=== PATIENT | female | born 1995 | race Caucasian/White ===

== ENCOUNTER → 2025-01-09 | Outpatient (CLI) | payer OTHER ==
--- NOTE | 2025-01-09 15:55 | US ---
EXAMINATION TYPE: Transabdominal DATE OF EXAM: 01/09/2025 2:58 PM COMPARISON: NONE CLINICAL INDICATION: Female, 29 years old with history of Z34.90 SUPERVISION OF ; pt found o ut she was in november, pt unaware of how far along she is TECHNIQUE: TA with grayscale and color Doppler imaging including first trimester . FINDINGS: EXAM MEASUREMENTS: GESTATIONAL AGE / DATING Physician Established: Not yet established Dates by LMP: 10/30/2024 (10 weeks/1 days) EDC: 08/06/2024 Dates by First Scan: No previous this is first scan Dates by Current Scan for: (8 weeks/6 days) EDC: 08/15/2024 MATERNAL ANATOMY Uterus: 12.4x5.3x7.5cm Slightly obscured by bowel Right Ovary: 2.7x2.2x1.4cm Limited visualization due to overlying bowel & pt body habitus Left Ovary: 3.7x1.8x1.7cm Limited visualization due to overlying bowel & pt body habitus Post CDS / Adnexa: wnl as best visualized Presence of free fluid: n/a Presence of corpus luteal cyst: n/a Presence of subchorionic bleed: n/a GESTATION / SURVEY CRL: 21.2mm (8 weeks/6 days) Gestational Sac morphology: Normal Yolk Sac (normal less than 6mm): 0.4cm Cardiac Activity/Heart Rate: 142 bpm Rhythm: Normal IUP: Viable IUP Date of LMP: 10/30/2024 Beta HcG (if available): Not available at this time IMPRESSION: 1. 1. Single intrauterine gestation estimated at 8 weeks 6 days gestation based on crown-rump length. Ca rdiac activity measures 142 bpm. [facility], , 01/09/2025 3:52 PM
== END | disposition home or self-care (01) ==
LOC: RADUSWWP 14:27
DX: Z34.91 Encounter for supervision of normal pregnancy, unspecified, first trimester (principal); Z3A.10 10 weeks gestation of pregnancy
CPT/HCPCS: 76801

== ENCOUNTER 2025-02-27 20:17 | Emergency (ER) | payer OTHER ==
--- NOTE | 2025-02-27 21:00 | ED ---
Nausea/Vomiting/Diarrhea HPI - General Chief complaint: Nausea/Vomiting/Diarrhea Stated complaint: vomiting Time Seen by Provider: 02/27/25 20:35 Source: patient, family, RN notes reviewed Mode of arrival: ambulatory Limitations: no limitations - History of Present Illness Initial comments: 29-year-old G2, P1 approximately 15 weeks gestation female presenting to the ER for evaluation of nausea and vomiting. Patient states since waking up this morning she has had consistent nausea and vomiting. Patient reports she has been unable to keep any food or liquids down given this. She denies any hematemesis or coffee-ground emesis. She has not taken anything for her current symptoms. Patient reports she has followed up with OB outpatient and had ult rasound completed at 8 weeks which was normal per patient. She denies any current abdominal pain, vaginal bleeding or discharge, dysuria, increased urinary frequency, fevers, chills or peripheral edema. - Related Data Previous Rx's Medication Instructions Recorded Ondansetron Odt [Zofran Odt] 4 mg PO Q8HR PRN #10 tab 02/27/25 Allergies Allergy/AdvReac Type Severity Reaction Status Date / Time No Known Allergies Allergy Verified 02/27/25 20:26 Review of Systems ROS Statement: Those systems with pertinent positive or pertinent negative responses have been documented in the HPI. ROS Other: All systems not noted in ROS Statement are negative. Past Medical History Past Medical History: Asthma History of Any Multi-Drug Resistant Organisms: None Reported Past Surgical History: Section Past Psychological History: No Psychological Hx Reported Smoking Status: Never smoker Past Alcohol Use History: None Reported Past Drug Use History: None Reported General Exam Limitations: no limitations General appearance: alert, in no apparent distress Respiratory exam: Present: normal lung sounds bilaterally. Absent: respiratory distress, wheezes, rales, rhonchi, stridor Cardiovascular Exam: Present: regular rate, normal rhythm, normal heart sounds. Absent: systolic murmur, diastolic murmur, rubs, gallop, clicks GI/Abdominal exam: Present: soft (Obese abdomen. No focal tenderness.), normal bowel sounds Extremities exam: Present: normal inspection, full ROM, normal capillary refill. Absent: tenderness, pedal edema, joint swelling, calf tenderness Neurological exam: Present: alert, oriented X3, CN II-XII intact Skin exam: Present: warm, dry, intact, normal color. Absent: rash Course Vital Signs 02/27/25 02/27/25 20:24 23:03 Temperature 98.6 F 98.3 F Pulse Rate 85 86 Respiratory 18 16 Rate Blood Pressure 107/77 112/81 O2 Sat by Pulse 99 100 Oximetry Medical Decision Making - Medical Decision Making Was pt. sent in by a medical professional or institution (LEENA Betts, VIDEO INTER[employer], urgent care, hospital, or halfway...) When possible be specific @ -No Did you speak to anyone other than the patient for history (EMS, parent, family, police, friend...)? What history was obtained from this source @ -No Did you review nursing and triage notes (agree or disagree)? Why? @ -I reviewed and agree with nursing and triage notes Were old charts reviewed (outside hosp., previous admission, EMS record, old EKG , old radiological studies, urgent care reports/EKG's, halfway records)? Report findings @ -No old charts were reviewed Differential Diagnosis (chest pain, altered mental status, abdominal pain women, abdominal pain men, vaginal bleeding, weakness, fever, dyspnea, syncope, headache, dizziness, GI bleed, back pain, seizure, CVA, palpatations, mental health, musculoskeletal)? @ -[Hyperemesis syndrome, viral gastroenteritis, UTI, dehydration... This list is not meant to be all-inclusive EKG interpreted by me (3pts min.). @ -None done X-rays interpreted by me (1pt min.). @ -[None done CT interpreted by me (1pt min.). @ -None done U/S interpreted by me (1pt. min.). @ -[Ultrasound OB limited heart tones 143 bpm. What testing was considered but not performed or refused? (CT, X-rays, U/S, labs)? Why? @ -None What meds were considered but not given or refused? Why? @ -None Did you discuss the management of the patient with other professionals (professionals i.e. LEENA Betts, VIDEO INTERN, lab, RT, psych nurse, neonatal social worker, websphere process server developer, teacher, unclaimed property officer, briefcase sewer)? Give summary @ -No Was smoking cessation discussed for >3mins.? @ -No Was critical care preformed (if so, how long)? @ -No Were there social determinants of health that impacted care today? How? (Homelessness, low income, unemployed, alcoholism, drug addiction, transportation, low edu. Level, literacy, decrease access to med. care, group home, rehab)? @ -No Was there de-escalation of care discussed even if they declined (Discuss DNR or withdrawal of care, Hospice)? DNR status @ -No What co-morbidities impacted this encounter? (DM, HTN, Smoking, COPD, CAD, Cancer, CVA, ARF, Chemo, Hep., AIDS, mental health diagnosis, sleep apnea, morbid obesity)? @ - Was patient admitted / discharged? Hospital course, mention meds given and route, prescriptions, significant lab abnormalities, going to OR and other pertinent info. @ -Discharge. 29-year-old female presented to ER for evaluation of nausea and vomiting. Patient is G2, P1 approximately 15 weeks gestation. Vital signs stable. Patient in no signs acute distress nontoxic-appearing. Laboratory studies remarkable for WBC 11.3 with left shift likely reactive. Serum hCG 52,146. Urinalysis with trace ketones likely reactive, no infection. Ul trasound limited heart tones 142 bpm. Patient provided with symptomatic treatment in emergency department with IV fluids and Zofran. Upon reevaluation, patient reporting improvement of symptoms. Tolerating oral intake. Patient will be discharged stable condition advised follow-up with MAITRE D. Zofran prescribed. Return parameters discussed. Patient verbally expressed understanding and agreement with care plan. Case discussed with ED attending, Dr. Malone. Undiagnosed new problem with uncertain prognosis? @ -No Drug Therapy requiring intensive monitoring for toxicity (Heparin, Nitro, Insulin, Cardizem)? @ -No Were any procedures done? @ -No Diagnosis/symptom? @ -Nausea and vomiting with Acute, or Chronic, or Acute on Chronic? @ -Acute Uncomplicated (without systemic symptoms) or Complicated (systemic symptoms)? @ -Uncomplicated Side effects of treatment? @ -No Exacerbation, Progression, or Severe Exacerbation? @ -No Poses a threat to life or bodily function? How? (Chest pain, [place], [place], pneumonia, PE, COPD, DKA, ARF, appy, cholecystitis, CVA, Diverticulitis, Homicidal, Suicidal, threat to staff... and all critical care pts) @ -No - Lab Data Result diagrams: 02/27/25 21:12 02/27/25 21:12 Lab Results 02/27/25 02/27/25 02/27/25 Range/Units 21:12 21:12 21:12 WBC 11.33 H (4.50-10.00) 10*3/uL RBC 4.57 (4.10-5.20) 10*6/uL Hgb 12.3 (12.0-15.0) g/dL Hct 37.1 L (37.2-46.3) % MCV 81.2 (80.0-97.0) fL MCH 26.9 L (27.0-32.0) pg MCHC 33.2 (32.0-37.0) g/dL Plt Count 329 (140-440) 10*3/uL MPV 8.7 L (9.5-12.2) fL Immature Gran % (Auto) 0.4 % Neutrophils % 73.2 % Lymphocytes % 17.2 % Monocytes % 5.5 % Eosinophils % 3.4 % Basophils % 0.3 % Immature Gran # 0.04 (0.00-0.04) 10*3/uL Neutrophils # 8.30 H (1.80-7.70) 10*3/uL Lymphocytes # 1.95 (0.90-5.00) 10*3/uL Monocytes # 0.62 (0.20-1.00) 10*3/uL Eosinophils # 0.39 H (0.04-0.35) 10*3/uL Basophils # 0.03 (0.00-0.10) 10*3/uL Sodium 136 L (137-145) mmol/L Potassium 3.7 (3.5-5.1) mmol/L Chloride 106 (98-107) mmol/L Carbon Dioxide 21 L (22-30) mmol/L Anion Gap 9 mmol/L BUN 4 L (7-17) mg/dL Creatinine 0.48 L (0.52-1.04) mg/dL Est GFR (CKD-EPI)AfAm >90 (>60 ml/min/1.73 sqM) Est GFR (CKD-EPI)NonAf >90 (>60 ml/min/1.73 sqM) Glucose 92 (74-99) mg/dL Plasma Lactic Acid Jett 0.8 (0.7-2.0) mmol/L Calcium 9.1 (8.4-10.2) mg/dL Total Bilirubin 0.4 (0.2-1.3) mg/dL AST 17 (14-36) U/L ALT 10 (4-34) U/L Alkaline Phosphatase 106 (38-126) U/L Total Protein 7.1 (6.3-8.2) g/dL Albumin 4.0 (3.5-5.0) g/dL HCG, Quant 22223.0 mIU/mL Urine Color Urine Appearance (Clear) Urine pH (5.0-8.0) Ur Specific [place] (1.001-1.035) Urine Protein (Negative) Urine Glucose (UA) (Negative) Urine Ketones (Negative) Urine Blood (Negative) Urine Nitrite (Negative) Urine Bilirubin (Negative) Urine Urobilinogen (<2.0) mg/dL Ur Leukocyte Esterase (Negative) 02/27/25 Range/Units 21:32 WBC (4.50-10.00) 10*3/uL RBC (4.10-5.20) 10*6/uL Hgb (12.0-15.0) g/dL Hct (37.2-46.3) % MCV (80.0-97.0) fL MCH (27.0-32.0) pg MCHC (32.0-37.0) g/dL Plt Count (140-440) 10*3/uL MPV (9.5-12.2) fL Immature Gran % (Auto) % Neutrophils % % Lymphocytes % % Monocytes % % Eosinophils % % Basophils % % Immature Gran # (0.00-0.04) 10*3/uL Neutrophils # (1.80-7.70) 10*3/uL Lymphocytes # (0.90-5.00) 10*3/uL Monocytes # (0.20-1.00) 10*3/uL Eosinophils # (0.04-0.35) 10*3/uL Basophils # (0.00-0.10) 10*3/uL Sodium (137-145) mmol/L Potassium (3.5-5.1) mmol/L Chloride (98-107) mmol/L Carbon Dioxide (22-30) mmol/L Anion Gap mmol/L BUN (7-17) mg/dL Creatinine (0.52-1.04) mg/dL Est GFR (CKD-EPI)AfAm (>60 ml/min/1.73 sqM) Est GFR (CKD-EPI)NonAf (>60 ml/min/1.73 sqM) Glucose (74-99) mg/dL Plasma Lactic Acid Jett (0.7-2.0) mmol/L Calcium (8.4-10.2) mg/dL Total Bilirubin (0.2-1.3) mg/dL AST (14-36) U/L ALT (4-34) U/L Alkaline Phosphatase (38-126) U/L Total Protein (6.3-8.2) g/dL Albumin (3.5-5.0) g/dL HCG, Quant mIU/mL Urine Color Yellow Urine Appearance Clear (Clear) Urine pH 6.5 (5.0-8.0) Ur Specific [place] 1.019 (1.001-1.035) Urine Protein Negative (Negative) Urine Glucose (UA) Negative (Negative) Urine Ketones Trace H (Negative) Urine Blood Negative (Negative) Urine Nitrite Negative (Negative) Urine Bilirubin Negative (Negative) Urine Urobilinogen <2.0 (<2.0) mg/dL Ur Leukocyte Esterase Negative (Negative) - Radiology Data Radiology results: report reviewed, image reviewed Disposition Clinical Impression: Nausea and vomiting during Disposition: HOME SELF-CARE Condition: Stable Instructions (If sedation given, give patient instructions): Acute Nausea and Vomiting (ED) Additional Instructions: Follow closely with MAITRE D. You may take Zofran as needed every 8 hours for nausea. Return to the ER for any new or worsening concerns. Prescriptions: Ondansetron Odt [Zofran Odt] 4 mg PO Q8HR PRN #10 tab PRN Reason: Nausea Is patient prescribed a controlled substance at d/c from ED?: No Referrals: None,Stated [Primary Care Provider] - 1-2 days Cesia Major, [Doctor of Osteopathic Medicine] - 1-2 days Forms: Area PCPs Time of Disposition: 22:51
[2025-02-27] MEDS: SODIUM CHLORIDE 0.9% 1,000 ML IV ONE (21:15)
[2025-02-27] MEDS: ACETAMINOPHEN TAB 325 MG TAB PO STA (21:16)
[2025-02-27] MEDS: ONDANSETRON 4 MG/2 ML VIAL IVP STA (21:17)
[2025-02-27 21:19] LABS: Basophils # (A) 0.03 10*3/uL (0.00-0.10); Basophils % (A) 0.3 %; Eosinophils # (A) 0.39 10*3/uL (0.04-0.35); Eosinophils % (A) 3.4 %; HCT 37.1 % (37.2-46.3); HGB 12.3 g/dL (12.0-15.0); Lymphocytes # (A) 1.95 10*3/uL (0.90-5.00); Lymphocytes % (A) 17.2 %; MCH 26.9 pg (27.0-32.0); MCHC 33.2 g/dL (32.0-37.0); MCV 81.2 fL (80.0-97.0); Monocytes # (A) 0.62 10*3/uL (0.20-1.00); Monocytes % (A) 5.5 %; Neutrophils # (A) 8.30 10*3/uL (1.80-7.70); Neutrophils % (A) 73.2 %; Platelet Count 329 10*3/uL (140-440); RBC 4.57 10*6/uL (4.10-5.20); RDW 14.7 % (11.5-14.5); WBC 11.33 10*3/uL (4.50-10.00)
[2025-02-27 21:30] LABS: ALT 10 U/L (4-34); AST 17 U/L (14-36); African American GFR (CKD) >90 (>60 ml/min/1.73 sqM); Albumin 4.0 g/dL (3.5-5.0); Alkaline Phosphatase 106 U/L (38-126); Anion Gap 9 mmol/L; Blood Urea Nitrogen 4 mg/dL (7-17); Calcium 9.1 mg/dL (8.4-10.2); Carbon Dioxide 21 mmol/L (22-30); Chloride 106 mmol/L (98-107); Glucose 92 mg/dL (74-99); Non-African American GFR(CKD) >90 (>60 ml/min/1.73 sqM); Potassium 3.7 mmol/L (3.5-5.1); Sodium 136 mmol/L (137-145); Total Protein 7.1 g/dL (6.3-8.2)
[2025-02-27 21:39] LABS: Bilirubin,Urine Negative (Negative); Blood,Urine Negative (Negative); Color,Urine Yellow; Glucose,Urine (UA) Negative (Negative); Ketones,Urine Trace (Negative); Leukocyte Esterase,Urine Negative (Negative); Nitrite,Urine Negative (Negative); PH, Urine 6.5 (5.0-8.0); Protein,Urine Negative (Negative); Specific Gravity,Urine 1.019 (1.001-1.035); Urobilinogen,Urine <2.0 mg/dL (<2.0)
--- NOTE | 2025-02-27 22:02 | US ---
EXAMINATION TYPE: US OB limited DATE OF EXAM: 02/27/2025 COMPARISON: 01/09/25 CLINICAL INDICATION: Female, 29 years old with history of heart tones; heart tones TECHNIQUE:: Transabdominal (TA) FINDINGS: GESTATIONAL AGE / DATING No growth performed on today?s study per ordering physician PRESENTATION: Vertex LIE: Longitudinal HEART RATE: 143 bpm RHYTHM: Normal IMPRESSION: Limited evaluation demonstrates heart tones with a reported cardiac rate of 143 bpm. [facility], , 02/27/2025 9:59 PM
[2025-02-27 22:11] LABS: HCG,Quantitative Serum 52146.0 mIU/mL
[2025-02-27] MEDS: ONDANSETRON 4 MG ODT STARTER PACK TAB BTL PO STA (23:01)
[2025-02-27 23:05] VITALS: BP 112/81; PULSE 86; RESP 16; TEMP 98.3
== END 2025-02-27 23:05 | disposition home or self-care (01) ==
LOC: EC 20:17
DX: O21.9 Vomiting of pregnancy, unspecified (principal); Z3A.15 15 weeks gestation of pregnancy
CPT/HCPCS: 36415; 80053; 83605; 85025; 81003; 84702; 76815; 99284; 96374; 96361 ×2; J2405; S0119